=== PATIENT | female | born 1940 | race Caucasian/White ===

== ENCOUNTER 2018-01-28 19:35 | Observation (INO) ==
--- NOTE | 2018-01-28 21:00 | Emergency Department Note ---
ED Disposition Clinical Impression: Acute bacterial sinusitis TIA (transient ischemic attack) Qualifiers: Transient cerebral ischemia type: other Qualified Code(s): G45.8 - Other transient cerebral ischemic attacks and related syndromes Leukocytosis Qualifiers: Leukocytosis type: other Qualified Code(s): D72.828 - Other elevated white blood cell count Disposition: Admitted As Inpatient Condition on Discharge: Good Time of Disposition: 22:22 - Critical Care Critical Care Time: Yes Attestation: On 01/28/18, the high probability of a clinically significant, sudden or life threatening deterioration of the following system(s) required my full and direct attention, intervention and personal management. The time I documented below is in addition to time spent performing reported procedures but includes the following listed in this critical care notation. Total Critical Care Time: 45 Vital system(s) involved:: Central Nervous System My critical care processes included: Assessment & monitoring of V/S, Initial and Re-exams, Data Review/Interpretation, Coordinating Care, Medication Orders and management, Documentation Medical Decision Making - Medical Records Medical records reviewed: Yes: I reviewed the patient's medical records. - Tomer Inquiry Pt receiving controlled substance: No Vital Signs: 01/28/18 20:08 01/28/18 20:22 01/28/18 21:34 Temperature 97.8 F 97.8 F 97.6 F Temperature Source Temporal Artery Scan Oral Oral Pulse Rate Pulse Rate [Brachial] 82 80 79 Respiratory Rate 18 14 16 Blood Pressure Blood Pressure [Right Arm] 180/86 189/81 173/91 Blood Pressure Mean [Right Arm] 117 117 118 Blood Pressure Source Blood Pressure Source [Right Arm] Automatic Cuff Automatic Cuff Blood Pressure Position Blood Pressure Position [Right Arm] Sitting Supine Sitting 02 Sat by Pulse Oximetry 94 L 97 93 L Oxygen Delivery Method Room Air Room Air Room Air 01/28/18 22:40 Temperature 97.6 F Temperature Source Oral Pulse Rate 66 Pulse Rate [Brachial] Respiratory Rate 16 Blood Pressure 170/80 Blood Pressure [Right Arm] Blood Pressure Mean [Right Arm] Blood Pressure Source Automatic Cuff Blood Pressure Source [Right Arm] Blood Pressure Position Sitting Blood Pressure Position [Right Arm] 02 Sat by Pulse Oximetry Oxygen Delivery Method Room Air - Lab Data Lab results reviewed: Yes: I reviewed the patient's lab results. Lab Results 01/28/18 21:00: WBC 18.1 H, RBC 5.29, Hgb 15.4, Hct 48.0 H, MCV 90.7, MCH 29.2, MCHC 32.2, RDW 13.2, Plt Count 216, MPV 9.2, Neut % (Auto) 73.3, Lymph % (Auto) 21.7, [place] % (Auto) 4.6, Eos % (Auto) 0.1, Baso % (Auto) 0.4, Neut # (Auto) 13.3 H, Lymph # (Auto) 3.9, [place] # (Auto) 0.8, Eos # (Auto) 0.0, Baso # (Auto) 0.1, Total Counted 100, Neutrophils % (Manual) 79 H, Lymphocytes % (Manual) 19, Monocytes % (Manual) 2, Platelet Estimate Normal, Anisocytosis 1+ 01/28/18 21:00: PT 10.5, INR 0.97, APTT 24.0 01/28/18 21:00: Sodium 143, Potassium 4.2, Chloride 101, Carbon Dioxide 33 H, Anion Gap 13.2, BUN 17, Creatinine 0.83, Estimated Creat Clear 62, Estimated GFR 67, Est GFR ( Amer) 81, Glucose 159 H, Calcium 9.6, Total Bilirubin 0.6, AST 18, ALT 26, Alkaline Phosphatase 152 H, CK-MB (CK-2) < 0.5, Total Protein 8.1, Albumin 3.3 L, Globulin 4.8 H, Albumin/Globulin Ratio 0.7 L 01/28/18 21:00: B-Natriuretic Peptide 77 01/28/18 21:00: Troponin I < 0.02 01/28/18 21:40: Urine Color Yellow, Urine Appearance Clear, Urine pH 6.5, Ur Specific [place] 1.025, Urine Protein Negative, Urine Glucose (UA) Negative, Urine Ketones Trace, Urine Blood Negative, Urine Nitrate Negative, Urine Bilirubin Negative, Urine Urobilinogen 0.2, Ur Leukocyte Esterase Negative, Urine WBC 3-5, Ur Squamous Epith Cells 3-5, Urine Bacteria 1+, Urine Mucus 1+ Result diagrams: 01/28/18 21:00 01/28/18 21:00 Orders (Tests/Meds): ED MEDICATIONS Generic Name Dose Route Start Last Admin Trade Name Freq PRN Reason Stop Dose Admin Aspirin 325 mg 01/29/18 09:00 Aspirin 325mg Tablet PO 02/28/18 08:59 DAILY QI Ceftriaxone Sodium 1 gm/ 50 mls @ 100 mls/hr 01/28/18 22:45 01/28/18 23:28 Sodium Chloride IV 02/11/18 22:44 100 mls/hr Q24H QI Administration Protocol Discontinued Medications Generic Name Dose Route Start Last Admin Trade Name Freq PRN Reason Stop Dose Admin Aspirin 324 mg 01/28/18 20:19 01/28/18 20:20 Aspirin 81mg Chewable Tablet PO 01/28/18 20:20 324 mg ONCE ONE Administration Aspirin 325 mg 01/29/18 09:00 Aspirin 325mg Tablet PO 02/28/18 08:59 DAILY [facility] Ceftriaxone Sodium 1 gm/ 50 mls @ 100 mls/hr 01/28/18 22:45 Sodium Chloride IV 02/11/18 22:44 Q24H [facility] Protocol Nitroglycerin 0.4 mg 01/28/18 20:19 Nitrostat 0.4mg Sl Tablet SL 01/29/18 20:19 Q5MINP PRN Chest Pain ORDERS Category Date Time Status CA echo doppler complete Routine Exams 01/29/18 08:30 Ordered CA carotid duplex BI Routine Y 01/29/18 09:30 Ordered ECG Request by /Nse Stat Y 01/28/18 20:19 Stop Req - Radiology Data #1 Image(s): Chest Image Reviewed: Yes I reviewed the patient's radiology results, Yes I reviewed the patient's radiology image, Yes I have reviewed radiologist's interpretation Preliminary Findings: Normal/NAD - CT Data CT Scan: Head (CT head without contrast) Time Received: 22:[address] Reviewed: Yes: I have reviewed the patient's CT results, I discussed the CT results w/the radiologist, I have viewed the radiologist's interpretation Preliminary Findings: Normal/NAD - ECG Data Tracing #1 Heart rate 88, no acute ischemic changes ECG normal with no acute: arrhythmias, ischemia, conduction abnormalities, chamber hypertrophy Normal Sinus Rhythm: Yes - Physician Consults Physician Consulted: Dr. Garg covering for Dr. Reynolds Time: 22:25 Reason -: Admission, Pt condition Comment/Response: Advised of patient's presentation and findings, agreeable with hospitalization, will schedule patient for carotid ultrasound, echocardiogram, in the morning. Neuro checks per protocol overnight. - Reevaluation(s) Time: 22:30 Reevaluation #1: Patient appears medically stable, no acute distress, she denies any slurred speech, any vision problems at this time. Her repeat neurological exam is nonfocal. Advise patient of need to admit her for observation and perform additional testing. Altered Mental Status HPI - General Chief Complaint: Altered Mental Status Stated Complaint: ears,ARIAS,sick at stomach Time Seen by Provider: 01/28/18 20:10 Mode of Arrival: Ambulatory Source of Information: Patient, Relative Limitations: No Limitations Description of Symptoms (Recalled from ER Triage Doc. by RN): Son reports confusion, difficulty finding words, and weakness at 2 pm, last known well at 10am today. - History of Present Illness HPI narrative: Patient is a 77-year-old lady brought to the emergency room by POV by her 2 sons. The account of history appears conflictual between family members and patient. The patient stated that she is only here because she has a sore throat, she feels stopped up, and she cannot hear well, because of "ear problems ". She also believes that she has a sore in the left nare which bother her the most. Her sons however stated that she was confused earlier, and she was rambling words as well. Upon arrival to the emergency room her speech as well as mental status have resolved back to normal. The onset of symptoms was around 2 PM, and episodes lasted just a couple of hours. Patient stated that she has been on various medications for her diabetes, but she quit them because of side effects, and she is currently on no medications for her blood sugar control. Onset (ago): hour(s) (6+ hours) Timing confirmed by: family member (sons) Severity: mild Associated symptoms: denies other symptoms - Related Data Home Medications Medication Instructions Recorded Confirmed ALPRAZolam [Xanax 0.5mg tab] 0.5 mg PO NEEDED PRN 01/29/18 01/29/18 Miscellaneous [Unknown Home 0 each NOTAPPLIC CONSULT PHARMACY 01/29/18 01/29/18 Medication] Allergies Allergy/AdvReac Type Severity Reaction Status Date / Time codeine Allergy Verified 01/28/18 20:28 [facility] History I have reviewed the patient's past medical history: Yes Medical History: Reports:: Diabetes Mellitus Type 2 - Social History Alcohol Intake: never - Psychiatric History Expresses thoughts of harming self/others: None Suicide Plan Description: No Plan ROS Obtained: Yes All systems reviewed & no additional complaints, Yes Systems reviewed as appropriate & no additional complaints - ENT Ears, Nose, Mouth, and Throat: Reports system reviewed and no additional complaints, except as docu, Reports as per HPI, Reports other (Lesion inside left nose, stuffy, congested) - Neurologic Neurologic: Reports system reviewed and no additional complaints, except as docu , Reports as per HPI, Reports other (slurred speech associated with confusion earlier today) Physical Exam - General General appearance: alert, in no apparent distress - Head Head exam: atraumatic, normocephalic, normal inspection - Eye Eye exam: Present: normal appearance, PERRL, EOMI, other (Normal fundi) - ENT ENT exam: Present: other (Pharyngeal erythema, postnasal discharge) - Neck Neck exam: Present: normal inspection, full ROM, trachea midline. Absent: meningismus, lymphadenopathy - Chest Chest inspection: Present: normal inspection, symmetric chest wall rise. Absent : tenderness - Respiratory Respiratory exam: Present: normal lung sounds bilaterally. Absent: respiratory distress - Cardiovascular Cardiovascular exam: Present: regular rate, normal rhythm. Absent: JVD - Abdominal Exam Abdominal exam: Present: soft, normal bowel sounds. Absent: distention, tenderness, guarding - Extremities Exam Extremities exam: Present: normal inspection, full ROM, normal capillary refill. Absent: calf tenderness - Neurological Exam Neurological exam: Present: alert, oriented X3, CN II-XII intact, normal gait, motor sensory deficit, other (No focal neurological deficit. Patient's speech appears to be intact at this time.) - Psychiatric Psychiatric exam: Present: depressed, flat affect - Skin Skin exam: Present: warm, dry, intact, normal color
[2018-01-28 21:13] LABS: Basophils # 0.1 K/mm3 (0-0.2); Basophils % 0.4 % (0.1-2.0); Eosinophils % 0.1 % (0.1-12.0); Hemoglobin 15.4 g/dL (12.2-16.2); Lymphocytes # 3.9 K/mm3 (0.7-4.5); Lymphocytes % 21.7 K/mm3 (10-50); Mean Corpuscular HGB Conc 32.2 g/dL (31.8-35.4); Mean Corpuscular Hemoglobin 29.2 pg (27.0-31.2); Mean Corpuscular Volume 90.7 fl (81-99); Mean Platelet Volume 9.2 fl (7.4-10.4); Monocytes # 0.8 K/mm3 (0.1-1.0); Monocytes % 4.6 % (1.7-9.3); Neutrophils # 13.3 K/mm3 (1.8-7.8); Neutrophils % 73.3 % (37.0-80.0); Platelet Count 216 K/mm3 (142-424); Red Blood Count 5.29 M/mm3 (4.20-5.40); Red Cell Distribution Width 13.2 % (11.5-17.5); White Blood Count 18.1 K/mm3 (4.8-10.8)
[2018-01-28 21:18] LABS: INR 0.97 (0.9-1.1); Prothrombin Time 10.5 seconds (9.4-11.8)
[2018-01-28 21:31] LABS: Alanine Aminotransferase 26 U/L (12-78); Albumin Level 3.3 gm/dL (3.4-5.0); Albumin/Globulin Ratio 0.7 (1.1-1.8); Alkaline Phosphatase 152 U/L (46-116); Anion Gap 13.2 mEq/L (5-15); Aspartate Amino Transferase 18 U/L (15-37); Bilirubin,Total 0.6 mg/dL (0.2-1.0); Blood Urea Nitrogen 17 mg/dL (7-18); Calcium 9.6 mg/dL (8.5-10.1); Carbon Dioxide 33 mmol/L (21.0-32.0); Chloride 101 mmol/L (98-107); Globulin 4.8 gm/dl (1.3-3.2); Glucose 159 mg/dL (74-106); Potassium 4.2 mmoL/L (3.5-5.1); Sodium 143 mmol/L (136-145); Total Protein,Serum 8.1 gm/dL (6.4-8.2)
[2018-01-28 21:49] LABS: Microscopic, Urine URINE MICROSCOPIC (MICROSCOPIC)
[2018-01-28 21:54] LABS: Appearance,Urine CLEAR (Clear); Bilirubin,Urine Negative (Negative); Blood, Urine Negative (Negative); Color,Urine YELLOW (Yellow); Glucose,Urine (UA) Negative (Negative); Ketones,Urine TRACE (Negative); Leukocyte Esterase,Urine Negative (Negative); PH,Urine 6.5 (5.0-8.5); Protein,Urine Negative (Negative); Specific Gravity, Urine 1.025 (1.005-1.030); Urobilinogen,Urine 0.2 EU/dl (0.2)
[2018-01-28 23:11] LABS: Bacteria,Urine 1+ /lpf; Mucus,Urine 1+ /lpf
[2018-01-29 01:10] LABS: Anisocytosis 1+; Lymphocytes % 19 % (10-50); Monocytes % 2 % (2-9); Neutrophils % 79 % (42-76); Total Cells Counted 100
--- NOTE | 2018-01-29 07:08 | H&P/Discharge Summary ---
General - General Admission date: 01/28/18 Discharge date: 01/29/18 *Admission Date: 01/28/18 *Chief complaint: altered speech *History of present illness: 77-year-old female with recent diagnosis of diabetes presented to the emergency department approximately 6 hours after onset of word finding difficulties in speech. Patient's son provides most of the history. He states around 1 PM he had called his mother on the phone and she was having significant difficulties speaking. She cannot speak in sentences and seemed to be stuttering and having significant difficulty finding words. He became concerned for his mother. When he came home and went to check on her she was still having some difficulties and he convinced her to come to the emergency department. She did not have any motor dysfunction or sensory deficits. Patient can remember the events of yesterday. [facility] History I have reviewed the patient's past medical history: Yes Medical History: Reports:: Cancer, Diabetes Mellitus Type 2 Denies:: MRSA Other Medical History: Reports: Arthritis, Cataracts Laterality Cases: Right: Other Other Surgeries: Yes: Cholecystectomy, Dilation and Curettage, Hysterectomy- Total Amputation: No Fractures: No - *Social History Educational Level: Completed College Smoking Status: Never smoker Alcohol Intake: never Occupational Status: retired Housing: apartment - Psychiatric History Expresses thoughts of harming self/others: None Suicide Plan Description: No Plan *Family Hx:: Cancer Review of Systems - Constitutional Denies anorexia, Denies chills - Eyes Denies blind spots - *Cardiovascular Denies chest pain, Denies fast heart rate, Denies slow heart rate - *Respiratory Denies cough, Denies shortness of breath - *Gastrointestinal Denies abdominal pain - *Neurologic Reports other (slurred speech associated with confusion earlier today) Exam Vital signs and Labs for Last 24 Hours: Temp Pulse Resp BP Pulse Ox 97.6 F 64 14 150/83 91 L 01/29/18 04:27 01/29/18 04:27 01/29/18 04:27 01/29/18 04:27 01/29/18 04:27 Laboratory Results - last 24 hr 01/28/18 23:50: Lactic Acid 1.5 I & O for Last 24 hours: Intake & Output 01/26/18 01/27/18 01/28/18 01/29/18 11:59 11:59 11:59 11:59 Weight 182 lb Narrative: Patient is awake and alert this morning. She is conversant. She does not exhibit any aphasia. Facial bones are symmetric. Oropharynx is moist. Neck is without lymphadenopathy. Lungs are clear to auscultation. Heart has a regular rate and rhythm. There are no carotid bruits. She has movement of all extremities. There are no neurologic deficits. Hospital Course Hospital Course: She was admitted for observation on telemetry. No arrhythmias were detected. Echocardiogram and carotid Dopplers were performed on the and were unremarkable as to a cause of the patient's TIA. She was discharged home on aspirin. In the past the patient had been told totake aspirin but had been noncompliant. This was emphasized to the patient. Results Labs on day of discharge: Labs from last 24 hours 01/28/18 23:50 Lactic Acid 1.5 DS: Diagnosis - Discharge Diagnosis (1) TIA (transient ischemic attack) Status: Acute Discharge Medications Discharge Medications: Home Medications Medication Instructions Recorded Confirmed Type ALPRAZolam [Xanax 0.5mg tab] 0.5 mg PO NEEDED PRN 01/29/18 01/29/18 History Miscellaneous [Unknown Home 0 each NOTAPPLIC CONSULT PHARMACY 01/29/18 01/29/18 History Medication] Disposition Disposition: Home, Self-Care
--- NOTE | 2018-01-29 07:42 | Pharmacy Consult Notes ---
[facility] Pharmacy VTE Monitoring - Patient Demographics Admission date: 01/28/18 Report Date: 01/29/18 Time: 07:41 Allergies/Adverse Reactions: Patient Allergies codeine Allergy (Verified 01/28/18 20:28) Height: 1.6 m Weight: 82.554 kg Patient Problems: Current Active Problems TIA (transient ischemic attack) (Acute) Leukocytosis (Acute) Acute bacterial sinusitis (Acute) - VTE Risk Labs: VTE Related Lab Results Hgb 15.4 g/dL (12.2-16.2) 01/28/18 21:00 Hct 48.0 % (37.0-47.0) H 01/28/18 21:00 Plt Count 216 K/mm3 (142-424) 01/28/18 21:00 PT 10.5 seconds (9.4-11.8) 01/28/18 21:00 INR 0.97 (0.9-1.1) 01/28/18 21:00 APTT 24.0 seconds (23.6-34.0) 01/28/18 21:00 BUN 17 mg/dL (7-18) 01/28/18 21:00 Creatinine 0.83 mg/dL (0.55-1.02) 01/28/18 21:00 Estimated Creat Clear 62 mL/min (0-300) 01/28/18 21:00 Was VTE Risk Assessment Performed: Yes VTE Score: 4 VTE Risk Level: Low Risk - Prophylaxis VTE Prophylaxis Ordered?: Yes Types of VTE Prophylaxis: TEDS Knee High Location of Applied Device: Bilateral Lower Extremeties - VTE Diagnosis Confirmed Treatment or plan recommended: Continue Current Treatment
--- NOTE | 2018-01-29 08:26 | Carotid Imaging Report ---
"Cerebrovascular Exam Indications: 435.9 Unspecified transient cerebral ischemia. IMPRESSIONS 1. The right internal carotid artery reveals no evidence of plaque or stenosis. 2. The bilateral vertebral arteries are patent with normal antegrade flow. 3. Study suggests less than 20% stenosis involving the left internal carotid artery. History: Transient ischemic attack. Risk factors: Former smoker - years since quittinyr. Hypertension. Hyperlipidemia. Carotid duplex study. Complete study and Doppler flow study including spectral analysis, color and lock scale imaging. Height: Height: 162.6cm. Height: 64in. Weight: Weight: 81.6kg. Weight: 179.6lb. Body mass index: BMI: 30.9kg/m^2. Body surface area: BSA: 1.95m^2. Location: Bedside. Patient status: Inpatient. Tables: Arterial flow: + +--------+--------+ |Location |V sys |V ed | + +--------+--------+ |Right CCA - proximal|101cm/s |16.5cm/s| + +--------+--------+ |Right CCA - distal |94.3cm/s|19.6cm/s| + +--------+--------+ |Right ECA |130cm/s |--------| + +--------+--------+ |Right ICA - proximal|53.5cm/s|12.7cm/s| + +--------+--------+ |Right ICA - mid |77.7cm/s|18.7cm/s| + +--------+--------+ |Right ICA - distal |92.1cm/s|25.9cm/s| + +--------+--------+ |Right vertebral |71.6cm/s|--------| + +--------+--------+ |Left CCA - proximal |113cm/s |19.2cm/s| + +--------+--------+ |Left CCA - distal |96cm/s |21.8cm/s| + +--------+--------+ |Left ECA |88.4cm/s|--------| + +--------+--------+ |Left ICA - proximal |63.8cm/s|18.7cm/s| + +--------+--------+ |Left ICA - mid |62.9cm/s|20.4cm/s| + +--------+--------+ |Left ICA - distal |108cm/s |24.4cm/s| + +--------+--------+ |Left vertebral |60.1cm/s|--------| + +--------+--------+ Velocity ratios: + + + + + + | |Right, V sys|Right, V ed|Left, V sys|Left, V ed| + + + + + + |Max ICA/dist CCA|0.98 |1.32 |1.13 |1.12 | + + + + + + (Report amended ) Electronically signed by: Fred Henson [id number]"
--- NOTE | 2018-02-01 21:30 | Cardiology Report ---
PROCEDURE: 2-D M-mode and color Doppler study INDICATIONS FOR THE TEST: Chest pain COPD Heart Murmur Tobacco Smokingex Palpitations Fatigue Syncope Edema Hypertension+Diabetes Mellitus+ Rheumatic Fever SOB+ISIDRO Obesity+Hyperlipidemia Family History HD Additional History PATIENT INFORMATION HEIGHT: 64 WEIGHT: 180 GENDER: Female B/P: 150/83 2-D/M-MODE INTERPRETATION: 2-D MEASUREMENTS OBSERVED VALUES IN CMS Right Ventricular Dimension (RVDd) 1.8 Interventricular Septum (Thickness)(IVsd) 1.2 Left Ventricular Internal Dimensions(LVIDd) 3.1 Left Ventricular Posterior Wall (Thickness)(LVPWd) 1.2 Aortic Root 2.8 Aortic Cusp Separation 2.0 Left Atrial Dimensions (LAD) 4.2 2D 1. Left atrium is moderately enlarged, left ventricle is normal size, mild concentric left ventricular hypertrophy, visually estimated ejection fraction of 55% with no obvious regional wall motion abnormality. 2. The right atrium and right ventricle are normal size and contractility. 3. The aortic valve is minimally thickened and fibrosed. 4. The mitral and tricuspid valve leaflets are minimally thickened. 5. The pulmonic valve is poorly visualized. 6. No significant pericardial effusion noted. DOPPLER INTERROGATION: Doppler interrogation of the aortic, mitral and tricuspid valvular presence of mild mitral and tricuspid regurgitation, tricuspid and jet velocity is insufficient for calculation of the right ventricular systolic pressure, grade 1 diastolic dysfunction seen with tissue Doppler evidence of raised left atrial pressure. CONCLUSION: 1. Moderately enlarged left atrium, normal left ventricular size, mild concentric left ventricular hypertrophy, visually estimated ejection fraction 55% with no obvious regional wall motion abnormality, grade 1 diastolic dysfunction seen with tissue Doppler evidence of raised left atrial pressure. 2. Mild mitral and tricuspid regurgitation 3. No significant pericardial effusion noted.
== END 2018-01-29 16:04 | disposition home or self-care (01) ==
LOC: UTC 19:35 → 2ND 19:35
PROVIDERS: ADMIT Family Medicine; ATTEND Family Medicine

== ENCOUNTER → 2018-03-12 12:22 | Outpatient (CLI) | payer MEDICARE, MEDICAID, SELFPAY ==
[2018-03-12 12:47] LABS: Blood Urea Nitrogen 9 mg/dL (7-18); Creatinine,Serum 0.72 mg/dL (0.55-1.02); Estimated Glomerular Filt Rate 79 ml/min (>60); GFR (African American) 95 ML/MIN (>60)
--- NOTE | 2018-03-12 13:20 | MR_ITS ---
MR head/brain wo/w con , Possible stroke HISTORY: Headache, confusion, frequent falls ITS.REASON: CVA ORDERING PHYSICIAN: Michael Reynolds MD PATIENT AGE: 77 years Comparison: 01/28/2018 TECHNIQUE: Standard multiplanar multiecho sequences are performed without and with gadolinium enhancement. FINDINGS: There is no evidence of acute infarction. No midline shift, mass effect, intracranial hemorrhage, or hydrocephalus. There is a well-circumscribed intensely enhancing 14 x 10 mm extra-axial lesion noted in the right cerebellar area anteriorly and laterally. This is consistent with a meningioma. This is isointense on T1 and T2 without mass effect or edema. No other enhancing lesions are evident. The cerebellopontine angles and brainstem are unremarkable. This enhancing lesion is posterior and separate from the CP angle posterior to the CP angle by approximately 12 mm. There are a few scattered periventricular and subcortical T2 white matter hyperintensities which are nonspecific and may be related to ischemic gliotic change from microvascular disease. No sinus air-fluid level is evident. No mastoid effusion. IMPRESSION: 1. 14 x 10 mm meningioma in the right posterior fossa along the right lateral and anterior aspect of the cerebellum posterior to the CP angle by approximately [address] head without contrast. 3. No evidence of acute, subacute, or chronic infarction
--- NOTE | 2018-03-12 14:53 | HMH.ITSHM ---
ALPRAZOLAM AMITRIPTYLINE PERPHENAZINE ASPIRIN
== END ==
PROVIDERS: Family Provider Family Medicine; PCP Family Medicine; Visit Provider Family Medicine
DX: I63.9 Cerebral infarction, unspecified (principal)
CPT/HCPCS: 36415; 70553; 82565; 84520; A9576

== ENCOUNTER 2021-03-29 12:05 | Emergency (ER) | payer MEDICARE, SELFPAY ==
[2021-03-29 12:15] VITALS: BP 150/72; PULSE 57; RESP 18; TEMP 36.9; O2SAT 94; BMI 28.0
[2021-03-29 12:30] VITALS: BP 135/84; PULSE 61; RESP 20; TEMP 36.7; O2SAT 96; BMI 27.4
[2021-03-29 13:54] LABS: Apearance,Urine Clear (Clear); Color,Urine Yellow (Yellow); Glucose,Urine (UA) Negative (Negative); Protein,Urine 2+ (Negative)
[2021-03-29 13:55] LABS: Bilirubin,Urine Negative (Negative); Blood, Urine Negative (Negative); Ketones,Urine Negative (Negative); UTC Leukocyte Esterase,Urine 1+ (Negative); UTC Nitrate,Urine Negative (Negative); Urobilinogen,Urine 0.2 EU/dl (0.2)
--- NOTE | 2021-03-29 13:59 | HMH.EDUTC ---
[facility] Disposition Clinical Impression: UTI (urinary tract infection) Qualifiers: Urinary tract infection type: site unspecified Hematuria presence: with hematuria Qualified Code(s): N39.0 - Urinary tract infection, site not specified Disposition: Home, Self-Care Condition on Discharge: Good Instructions: Urinary Tract Infection Additional Instructions: Drink plenty of fluids. Take tylenol or ibuprofen for pain or fever. Take the medications as directed. Follow up with your regular doctor. GO TO THE ER FOR ANY WORSENING SYMPTOMS The pyridium will make your urine turn orange, this is an expected side effect. It will stain your clothes if it comes into contact with them. Prescriptions: Nitrofurantoin Monohyd/M-Cryst [Macrobid 100 mg Capsule] 100 mg PO BID 5 Days #10 cap Transmission Status: [facility] Phenazopyridine HCl [Pyridium 200mg Tablet] 200 pow PO TID #6 tab Transmission Status: [facility] Referrals: Provider,Referral, [Primary Care Provider] - Time of Disposition: 14:06 Medical Decision Making - Medical Records Medical records reviewed: No: I reviewed the patient's medical records. - Tomer Inquiry Pt receiving controlled substance: No Vital Signs: 03/29/21 12:15 03/29/21 12:30 03/29/21 14:03 Temperature 98.4 F 98.0 F 98.0 F Temperature Source Oral Oral Pulse Rate 61 Pulse Rate [Right Radial] 57 L 61 Respiratory Rate 18 20 20 Blood Pressure 135/84 Blood Pressure [Right Arm] 150/72 H 135/84 Blood Pressure Mean [Right Arm] 98 101 Blood Pressure Source [Right Arm] Automatic Cuff Automatic Cuff Blood Pressure Position [Right Arm] Sitting Sitting 02 Sat by Pulse Oximetry 94 L 96 Oxygen Delivery Method Room Air Room Air - Lab Data Lab results reviewed: Yes: I reviewed the patient's lab results. Lab Results 03/29/21 13:06: Urine Color Yellow, Urine Appearance Clear, Urine pH 7.0, Ur Specific [place] 1.020, Urine Protein 2+, Urine Glucose (UA) Negative, Urine Ketones Negative, Urine Blood Negative, Urine Nitrate Negative, Urine Bilirubin Negative, Urine Urobilinogen 0.2, Ur Leukocyte Esterase 1+ A Orders (Tests/Meds): ORDERS Category Date Time Status Urine Culture Stat Micro 03/29/21 13:40 Received [facility] HPI - General Stated complaint: weakness Time Seen by Provider: 03/29/21 13:59 Mode of Arrival: Ambulatory Source of Information: Patient Limitations: No Limitations Description of Symptoms (Recalled from Triage Doc. by RN): PATIENT C/O PELVIC PAIN THAT STARTED APPROX 2 WEEKS AGO. STATES PELVIC PAIN IS A LITTLE BETTER BUT IS HAVING DISCOMFORT IN [place] AREA. ALSO C/O BODY ACHES AND SCRATCHY THROAT HEENT Symptoms (Recalled from RN notes): No Resp Symptoms (Recalled from RN notes): No Skin Symptoms (Recalled from RN notes): No MS Symptoms (Recalled from RN notes): No Functional Status (Recalled from RN notes): WNL - History of Present Illness Provider Complaint: She states that she has been burning while urinating for the past 2 weeks. She denies any fever, but she has fatigue. - Related Data Home Medications Medication Instructions Recorded Confirmed ALPRAZolam [Xanax 0.5mg tab] 0.5 mg PO NEEDED PRN 01/29/18 11/02/19 Previous Rx's Medication Instructions Recorded Aspirin [Aspirin 81mg EC Tab] 81 mg PO DAILY #30 tablet. 01/29/18 ondansetron 4 mg disintegrating 4 mg PO Q6H PRN 3 Days #12 tab 11/02/19 tablet Nitrofurantoin Monohyd/M-Cryst 100 mg PO BID 5 Days #10 cap 03/29/21 [Macrobid 100 mg Capsule] Phenazopyridine HCl [Pyridium 200 pow PO TID #6 tab 03/29/21 200mg Tablet] Allergies Allergy/AdvReac Type Severity Reaction Status Date / Time codeine Allergy Verified 11/02/19 12:20 - Worker's Comp Is this a Worker's Comp case?: No [facility] History - Hepatitis A Screen Drug use history?: No High risk sexual behaviors?: No History of sexually tra
[2021-03-29 14:03] VITALS: BP 135/84; PULSE 61; RESP 20; TEMP 36.7; O2SAT 96
== END 2021-03-29 14:05 | disposition home or self-care (01) ==
PROVIDERS: Emergency Provider Nurse Practitioner Family; PCP Family Medicine
DX: N30.00 Acute cystitis without hematuria (principal); E11.9 Type 2 diabetes mellitus without complications; Z88.6 Allergy status to analgesic agent
CPT/HCPCS: G0463; 81003; 87086; 99202

== ENCOUNTER 2021-04-17 10:56 | Emergency (ER) | payer MEDICARE, MEDICAID, SELFPAY ==
[2021-04-17 11:00] VITALS: BP 194/74; PULSE 66; RESP 20; TEMP 36.7; O2SAT 94; BMI 25.6
--- NOTE | 2021-04-17 11:09 | PC.NURSE ---
Dr thrasher at bedside
--- NOTE | 2021-04-17 11:10 | ECG_ITS ---
APPROVED REPORT Exam: Resting ECG HR:65 bpm ECG Measurements Heart Rate 65 AXES GA 196 P 76 QRSd 84 QRS 31 QT 412 T 24 QTc 428 Conclusion Sinus rhythm with marked sinus arrhythmia Possible Left atrial enlargement Borderline ECG Electronically signed by : Wilbert Chamberlain, 04/17/2021 17:40:13
[2021-04-17 11:16] VITALS: BMI 25.6
--- NOTE | 2021-04-17 11:17 | XR_ITS ---
PROCEDURE: XR CHEST 2V CLINICAL HISTORY: shortness of breath COMPARISON: CR CXR2 XR chest AP from 01/28/2018 FINDINGS: Mild cardiomegaly without failure. The lungs are clear without infiltrates, suspicious nodules, or pleural effusions. Mild kyphosis of the thoracic spine with mild degenerative changes IMPRESSION: No acute findings. Dictated by: Fred Henson MD 04/17/2021 11:36 Fred Henson MD in [place] 04/17/2021 11:36
[2021-04-17 11:23] LABS: Basophils # 0.1 K/mm3 (0-0.2); Basophils % 0.8 % (0.1-2.0); Eosinophils # 0.1 K/mm3 (0.0-0.4); Eosinophils % 1.1 % (0.1-12.0); Hematocrit 47.2 % (37.0-47.0); Hemoglobin 15.6 g/dL (12.2-16.2); Lymphocytes # 3.9 K/mm3 (0.7-4.5); Lymphocytes % 39.1 % (10-50); Mean Corpuscular HGB Conc 33.1 g/dL (31.8-35.4); Mean Corpuscular Volume 87.5 fl (81-99); Mean Platelet Volume 9.1 fl (7.4-10.4); Monocytes # 0.4 K/mm3 (0.1-1.0); Monocytes % 3.5 % (1.7-9.3); Neutrophils # 5.6 K/mm3 (1.8-7.8); Neutrophils % 55.5 % (37.0-80.0); Platelet Count 209 K/mm3 (142-424); Red Blood Count 5.39 M/mm3 (4.20-5.40); Red Cell Distribution Width 13.3 % (11.5-17.5); White Blood Count 10.1 K/mm3 (4.8-10.8)
--- NOTE | 2021-04-17 11:24 | PC.NURSE ---
Pt to XR via wheelchair
[2021-04-17 11:30] VITALS: BP 139/71; PULSE 69; O2SAT 92
[2021-04-17 11:41] LABS: Chloride 107 mmol/L (98-107); Sodium 142 mmol/L (136-145)
[2021-04-17 11:44] LABS: Alanine Aminotransferase 20 U/L (12-78); Albumin Level 4.5 g/dl (3.5-5.0); Albumin/Globulin Ratio 1.3 (1.1-1.8); Alkaline Phosphatase 122 U/L (38-126); Aspartate Amino Transferase 28 U/L (14-36); Bilirubin,Total 0.8 mg/dl (0.2-1.3); Blood Urea Nitrogen 14 mg/dl (7-17); Calcium 9.3 mg/dl (8.4-10.2); Carbon Dioxide 25 mmol/L (22.0-30.0); Creatinine Clearance Estimated 46 mL/min (50-200); Estimated Glomerular Filt Rate 96 ml/min (>60); GFR (African American) 117 ML/MIN (>60); Globulin 3.5 g/dL (1.3-3.2); Glucose 155 mg/dl (74-100)
[2021-04-17 12:00] VITALS: BP 140/82; PULSE 61; RESP 14; O2SAT 95
[2021-04-17 12:12] LABS: Troponin I < 0.01 ng/ml (0.00-0.034)
[2021-04-17 12:30] VITALS: BP 158/63; PULSE 57; RESP 16; O2SAT 96
--- NOTE | 2021-04-17 12:54 | HMH.EDSOB ---
ED Disposition Clinical Impression: Reactive airway disease Qualifiers: Asthma severity: unspecified severity Asthma persistence: unspecified Asthma complication type: with acute exacerbation Qualified Code(s): J45.901 - Unspecified asthma with (acute) exacerbation Disposition: Home, Self-Care Condition on Discharge: Good Instructions: DI for Shortness of Breath Additional Instructions: see pul med for follow up Prescriptions: predniSONE [Prednisone 20mg Tab] 20 mg PO BID #10 tab Transmission Status: Pending to [facility] Referrals: Maryann Marino MD [Primary Care Provider] - Adolfo Lugo MD [Physician] - - Critical Care Critical Care Time: No Attestation: On 04/17/21, the high probability of a clinically significant, sudden or life threatening deterioration of the following system(s) required my full and direct attention, intervention and personal management. The time I documented below is in addition to time spent performing reported procedures but includes the following listed in this critical care notation. Medical Decision Making - Medical Records Medical records reviewed: Yes: I reviewed the patient's medical records. - Tomer Inquiry Pt receiving controlled substance: No Vital Signs: 04/17/21 11:00 04/17/21 11:30 04/17/21 12:00 Temperature 98.1 F Temperature Source Oral Pulse Rate 69 61 Pulse Rate [Right] 66 Respiratory Rate 20 14 Blood Pressure 139/71 140/82 Blood Pressure [Right Arm] 194/74 H Blood Pressure Mean 101 Blood Pressure Mean [Right Arm] 114 Blood Pressure Source Blood Pressure Position Blood Pressure Position [Right Arm] Sitting 02 Sat by Pulse Oximetry 94 L 92 L 95 Oxygen Delivery Method Room Air 04/17/21 12:30 Temperature Temperature Source Pulse Rate 57 L Pulse Rate [Right] Respiratory Rate 16 Blood Pressure 158/63 H Blood Pressure [Right Arm] Blood Pressure Mean Blood Pressure Mean [Right Arm] Blood Pressure Source Automatic Cuff Blood Pressure Position Sitting Blood Pressure Position [Right Arm] 02 Sat by Pulse Oximetry 96 Oxygen Delivery Method Room Air - Lab Data Lab results reviewed: Yes: I reviewed the patient's lab results. Lab Results 04/17/21 11:16: WBC 10.1, RBC 5.39, Hgb 15.6, Hct 47.2 H, MCV 87.5, MCH 29.0, MCHC 33.1, RDW 13.3, Plt Count 209, MPV 9.1, Neut % (Auto) 55.5, Lymph % (Auto) 39.1, [place] % (Auto) 3.5, Eos % (Auto) 1.1, Baso % (Auto) 0.8, Neut # (Auto) 5.6, Lymph # (Auto) 3.9, [place] # (Auto) 0.4, Eos # (Auto) 0.1, Baso # (Auto) 0.1 04/17/21 11:16: Sodium 142, Potassium 4.0, Chloride 107, Carbon Dioxide 25, Anion Gap 14.0, BUN 14, Creatinine 0.60, Estimated Creat Clear 46, Estimated GFR 96, Est GFR ( Amer) 117, Glucose 155 H, Calcium 9.3, Total Bilirubin 0.8, AST 28, ALT 20, Alkaline Phosphatase 122, Troponin I < 0.01, Total Protein 8.0, Albumin 4.5, Globulin 3.5 H, Albumin/Globulin Ratio 1.3 Result diagrams: 04/17/21 11:16 04/17/21 11:16 Orders (Tests/Meds): ORDERS Category Date Time Status Troponin I Q3H Lab 04/17/21 14:30 Ordered Troponin I Q3H Lab 04/17/21 17:30 Ordered - Radiology Data #1 Image(s): Chest Image Reviewed: Yes I reviewed the patient's radiology image Preliminary Findings: Normal/NAD - ECG Data Tracing #1 Normal Sinus Rhythm: Yes Ischemic changes: non-specific ST-T wave changes Medical Decision Narrative: possible reactive airway disease Resp/SOB HPI - General Chief Complaint: Shortness of Breath/Dyspnea Stated Complaint: possible lung issue Time Seen by Provider: 04/17/21 11:10 Mode of Arrival: Ambulatory Source of Information: Patient, Medical Record Limitations: No Limitations Description of Symptoms (Recalled from ER Triage Doc. by RN): pt presents with bag of stuff thats been flying around in her AC for several months, pt c/o shortness of breath & sore throat x2 months - History of Present Illness pt with feel
[2021-04-17 13:01] VITALS: BP 144/64; PULSE 52; RESP 16; O2SAT 95
[2021-04-17 13:16] VITALS: BP 144/64; PULSE 61; RESP 16; TEMP 36.4; O2SAT 98
== END 2021-04-17 13:27 | disposition home or self-care (01) ==
PROVIDERS: Emergency Provider Emergency Medicine; PCP Family Medicine
DX: J45.901 Unspecified asthma with (acute) exacerbation (principal); E11.9 Type 2 diabetes mellitus without complications; G45.8 Other transient cerebral ischemic attacks and related syndromes; Z79.899 Other long term (current) drug therapy
CPT/HCPCS: 71046; 80053; 84484; 85025; 93005; 96374; 99283

== ENCOUNTER → 2021-05-02 11:25 | Outpatient (CLI) | payer MEDICARE, SELFPAY ==
--- NOTE | 2021-05-02 11:42 | XR_ITS ---
PROCEDURE: XR CHEST 2V CLINICAL HISTORY: sob COMPARISON: CR CXR2 XR chest AP from 01/28/2018 CR XR CHEST 2V from 04/17/2021 FINDINGS: The cardiomediastinal silhouette and pulmonary vascularity are within normal limits. The lungs are clear without infiltrates, suspicious nodules, or pleural effusions. No acute bony abnormalities. IMPRESSION: No acute findings. Dictated by: Leyla Hyde 05/02/2021 11:53 Leyla Hyde in [place] 05/02/2021 11:53
[2021-05-05 11:27] LABS: Aspergillus flavus Negative (Neg:<1:1); Aspergillus fumigatus Negative (Neg:<1:1); Aspergillus niger Negative (Neg:<1:1); Blastomyces Antibody Negative (Neg:<1:1)
[2021-05-05 13:12] LABS: D001-IgE D pteronyssinus <0.10 kU/L (Class 0); D002-IgE D farinae <0.10 kU/L (Class 0); E001-IgE Cat Dander <0.10 kU/L (Class 0); E005-IgE Dog Dander <0.10 kU/L (Class 0); E072-IgE Mouse Urine <0.10 kU/L (Class 0); G002-IgE Bermuda Grass <0.10 kU/L (Class 0); G006-IgE Timothy Grass <0.10 kU/L (Class 0); I006-IgE Cockroach, German <0.10 kU/L (Class 0); Immunoglobulin E, Total 16 IU/mL (6-495); M001-IgE Penicillium chrysogen <0.10 kU/L (Class 0); M002-IgE Cladosporium herbarum <0.10 kU/L (Class 0); M003-IgE Aspergillus fumigatus <0.10 kU/L (Class 0); M006-IgE Alternaria alternata <0.10 kU/L (Class 0); T001-IgE Maple/Box Elder <0.10 kU/L (Class 0); T003-IgE Common Silver Birch <0.10 kU/L (Class 0); T006-IgE Cedar, Mountain <0.10 kU/L (Class 0); T007-IgE Oak, White <0.10 kU/L (Class 0); T008-IgE Elm, American <0.10 kU/L (Class 0); T010-IgE Walnut <0.10 kU/L (Class 0); T011-IgE Maple Leaf Sycamore <0.10 kU/L (Class 0); T014-IgE Cottonwood <0.10 kU/L (Class 0); T015-IgE Ash, White <0.10 kU/L (Class 0); T022-IgE Pecan, Hickory <0.10 kU/L (Class 0); T070-IgE White Mulberry <0.10 kU/L (Class 0); W001-IgE Ragweed, Short <0.10 kU/L (Class 0); W011-IgE Thistle, Russian <0.10 kU/L (Class 0); W014-IgE Pigweed, Common <0.10 kU/L (Class 0); W018-IgE Sheep Sorrel <0.10 kU/L (Class 0)
== END ==
PROVIDERS: Visit Provider Internal Medicine Pulmonary Disease
DX: J84.10 Pulmonary fibrosis, unspecified (principal); R06.00 Dyspnea, unspecified; J45.909 Unspecified asthma, uncomplicated
CPT/HCPCS: 36415; 71046; 82785; 86003; 86606; 86612

== ENCOUNTER 2023-03-17 11:14 | Emergency (ER) | payer MEDICARE, MEDICAID, SELFPAY ==
[2023-03-17 11:15] VITALS: BP 160/98; PULSE 95; RESP 19; TEMP 36.9; O2SAT 96; BMI 29.2
--- NOTE | 2023-03-17 11:29 | HMH.EDGENADL ---
Discharge Plan Disposition Patient Disposition: Home, Self-Care Prescriptions Prescriptions: New hydrocodone-acetaminophen 5-325 mg tablet 1 tab PO Q6H PRN (Reason: pain) 3 Days Qty: 12 0RF No Action ondansetron 4 mg tablet,disintegrating 4 mg PO Q6H PRN (Reason: nausea and vomiting) 3 Days Qty: 12 0RF metoprolol tartrate 25 mg tablet 25 mg PO albuterol sulfate 90 mcg/actuation HFA aerosol inhaler 1 inh INHALATION QID PRN (Reason: shortness of breath or wheezing) Qty: 8.5 12RF alprazolam 0.5 tablet 0.5 mg PO NEEDED PRN (Reason: Anxiety) Label Comments: aspirin 81 MG tablet,delayed release (DR/EC) 81 mg PO DAILY Qty: 30 11RF nitrofurantoin monohyd/m-cryst 100 MG capsule 100 mg PO BID 5 Days Qty: 10 0RF phenazopyridine 200 MG tablet 200 pow PO TID Qty: 6 0RF prednisone 20 MG tablet 20 mg PO BID Qty: 10 0RF Referrals Follow up/Referrals: Amado Crisostomo DO [Staff Physician] - See instructions (within one week ) Provider,Referral, [Primary Care Provider] - See instructions Clinical Impressions Clinical Impression: Distal radius fracture, right, Fracture of ulnar styloid Discharge ED Provider: Delmis Avalos [facility] HPI General Chief complaint: Fall Stated complaint: Fall@home 03/17 RT and LT arm pain Time Seen by Provider: 03/17/23 11:29 History of Present Illness HPI narrative: 82-year-old female had a mechanical fall just prior to arrival with significant right wrist deformity and pain and left wrist pain as well. No syncopal episodes shortness of breath chest pain or other preceding medical complaints. She denies any injuries elsewhere other than bilateral wrists. She has no difficulty with movement or sensation in that area. Related Data Home Medications Medication Instructions Recorded Confirmed alprazolam 0.5 mg tablet 0.5 mg PO NEEDED PRN Anxiety 01/29/18 09/04/21 metoprolol tartrate 25 mg tablet 25 mg PO 05/02/21 09/04/21 Previous Rx's Medication Instructions Recorded aspirin 81 mg tablet,delayed 81 mg PO DAILY ##30 01/29/18 release ondansetron 4 mg disintegrating 4 mg PO Q6H PRN nausea and 11/02/19 tablet vomiting 3 days #12 tabs nitrofurantoin 100 mg PO BID 5 days #10 caps 03/29/21 monohydrate/macrocrystals 100 mg capsule phenazopyridine 200 mg tablet 200 pow PO TID #6 tabs 03/29/21 prednisone 20 mg tablet 20 mg PO BID #10 tabs 04/17/21 albuterol sulfate 90 mcg/actuation 1 inh inhalation QID PRN shortness 05/02/21 aerosol inhaler of breath or wheezing #8.5 grams hydrocodone 5 mg-acetaminophen 325 1 tab PO Q6H PRN pain 3 days #12 03/17/23 mg tablet tabs Allergies Allergy/AdvReac Type Severity Reaction Status Date / Time codeine Allergy Unknown Verified 03/17/23 11:35 allergy reaction [facility] Disclaimer: The information contained in this section may have been updated after the patient was seen, as this information can be updated by other users. Social History Smoking Status: Never smoker alcohol intake: never current occupational status: other Travel in the last 8 weeks: None housing: apartment ROS Obtained: Yes All systems reviewed & no additional complaints except as documented Physical Exam General General appearance: alert Respiratory Respiratory exam: Present normal lung sounds bilaterally; Absent respiratory distress Cardiovascular Cardiovascular exam: Present regular rate; Absent tachycardia Extremities Exam Extremities exam: Present other (Patient with tenderness over the right elbow but full range of motion no soft tissue deformities no soft tissue deformities on the right side of other than the distal right wrist which has a distal fragment that appears to be dorsally angulated she has normal median ulnar radial nerve motor and sens) Neurological Exam Neurological exam: Present alert and oriented X3 Medi
[2023-03-17 11:31] VITALS: BP 160/48; PULSE 58; RESP 20; O2SAT 94
--- NOTE | 2023-03-17 11:34 | XR_ITS ---
FINAL REPORT CLINICAL HISTORY: Right wrist pain after a fall FINDINGS: RIGHT WRIST THREE VIEW FINDINGS: Three views show a transverse fracture of the radial epiphysis with mild dorsal angulation. There is a nondisplaced ulnar styloid fracture. The joint spaces appear normal. IMPRESSION: Fractures as above. Reviewed, Interpreted and Dictated by Danica Kemp MD Transcribed by Keren Da Silva Authenticated and [facility]
--- NOTE | 2023-03-17 11:34 | XR_ITS ---
FINAL REPORT CLINICAL HISTORY: Left wrist pain after a fall FINDINGS: LEFT WRIST THREE VIEW FINDINGS: Three views show no evidence of an acute, displaced fracture or dislocation of the visualized bony architecture. The bones are osteopenic. There are mild degenerative changes. IMPRESSION: No acute bony abnormality. Reviewed, Interpreted and Dictated by Danica Kemp MD Transcribed by Keren Da Silva Authenticated and [facility]
--- NOTE | 2023-03-17 11:34 | XR_ITS ---
FINAL REPORT CLINICAL HISTORY: Right elbow pain after a fall FINDINGS: RIGHT ELBOW 3 views were obtained. There is no acute fracture or dislocation. The joint spaces are intact. There is no soft tissue abnormality. IMPRESSION: No acute bony abnormality. Reviewed, Interpreted and Dictated by Danica Kemp MD Transcribed by Keren Da Silva Authenticated and [facility] [place] [place]
--- NOTE | 2023-03-17 11:34 | XR_ITS ---
FINAL REPORT CLINICAL HISTORY: Right arm pain after a fall FINDINGS: 2 views of the right forearm were obtained. There is a fracture of the distal radius. No other fracture is identified. The joints are intact. There are no soft tissue abnormalities. IMPRESSION: Distal radial fracture. Reviewed, Interpreted and Dictated by Danica Kemp MD Transcribed by Keren Da Silva Authenticated and [facility]
--- NOTE | 2023-03-17 12:41 | PC.NURSE ---
checked on pt no complaints at this time, family at bedside
--- NOTE | 2023-03-17 13:09 | XR_ITS ---
FINAL REPORT CLINICAL HISTORY: post splint, right wrist fracture FINDINGS: RIGHT WRIST Two views were obtained. There has been interval closed reduction of the distal radial fracture. Distal angulation has improved. Ulnar styloid fracture again noted. There has been interval placement of a fiberglass splint. IMPRESSION: Interval closed reduction of the distal radial fracture with improved distal angulation. Reviewed, Interpreted and Dictated by Danica Kemp MD Transcribed by Keren Da Silva Authenticated and [facility]
[2023-03-17 13:55] VITALS: BP 160/89; PULSE 95; RESP 16; TEMP 36.9
== END 2023-03-17 14:04 | disposition home or self-care (01) ==
PROVIDERS: Emergency Provider Student in an Organized Health Care Education/Training Program
DX: S52.501A Unspecified fracture of the lower end of right radius, initial encounter for closed fracture (principal); S52.614A Nondisplaced fracture of right ulna styloid process, initial encounter for closed fracture; W19.XXXA Unspecified fall, initial encounter
CPT/HCPCS: 25605; 73080; 73090; 73100; 73110; 99284; 99285

== ENCOUNTER → 2023-04-07 09:59 | Outpatient (CLI) | payer MEDICARE, MEDICAID, SELFPAY ==
--- NOTE | 2023-04-07 10:04 | XR_ITS ---
FINAL REPORT CLINICAL HISTORY: f/u rt wrist fx COMPARISON: March 17, 2023 FINDINGS: 3 views of the right wrist were obtained. There is overlying cast material. Again seen is an impacted fracture of the distal radius. Bony alignment is stable. There is a fracture of the base of the ulnar styloid process. There are mild degenerative changes. There is no soft tissue abnormality. IMPRESSION: Redemonstration of distal radius and ulnar styloid fractures. Reviewed, Interpreted and Dictated by Vitaliy Thakkar III, MD Transcribed by Allan Gar Authenticated and [facility]
== END ==
LOC: RAD 10:01
PROVIDERS: Visit Provider Orthopaedic Surgery
DX: S52.501A Unspecified fracture of the lower end of right radius, initial encounter for closed fracture (principal)
CPT/HCPCS: 73110

== ENCOUNTER 2023-04-21 12:10 | Outpatient (RCR) | payer MEDICARE, MEDICAID, SELFPAY | END 2023-04-21 13:15 | disposition home or self-care (01) | LOC: OT 12:10 | PROVIDERS: Visit Provider Orthopaedic Surgery | DX: S52.501A Unspecified fracture of the lower end of right radius, initial encounter for closed fracture (principal) | CPT/HCPCS: 97763 ==